=== PATIENT | female | born 1955 | race Caucasian/White ===

== ENCOUNTER 2016-08-25 17:15 | Inpatient (IN) | payer MEDICAID ==
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
[2016-08-25] MEDS ORDERED: HYDROmorphone 1 MG INJECTION IV PRN (17:37)
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
[2016-08-25] MEDS ORDERED: ENOXAPARIN 40 MG/0.4 ML PFS SQ ONE (18:00)
--- NOTE | 2016-08-25 18:25 | DIRPT ---
CLINICAL DATA: Status post fall. Preop hip replacement. EXAM: PORTABLE CHEST 1 VIEW COMPARISON: None. FINDINGS: The heart size and mediastinal contours are within normal limits. Both lungs are clear. The visualized skeletal structures are unremarkable. IMPRESSION: No active disease. Electronically Signed By: Radha Coronel On: 08/25/2016 18:22
[2016-08-25 18:43] LABS: LEUKOCYTES/URINE NEG (NEGATIVE); NITRITE/URINE NEG (NEGATIVE); RBC/URINE 20-30 (0-5); URINE OCCULT BLOOD 2+ (NEG/TRACE)
[2016-08-25] MEDS: HYDROmorphone 1 MG INJECTION IV PRN (18:48)
[2016-08-25 18:49] LABS: AUTOMATED BASOPHIL 0.6 % (0-2); AUTOMATED MONOCYTE 7.2 % (3-10); AUTOMATED NEUTROPHIL 72.2 % (45-76); MPV 8.5 fL (7.4-10.4)
[2016-08-25 18:54] LABS: BLOOD UREA NITROGEN 18 MG/DL (7-17); CALC CORRECTED 9.1 MG/DL (8.4-10.2); CALCIUM 8.6 MG/DL (8.4-10.2); CALCULATED OSMOLALITY 279 MOs/Kg (270-290); CHLORIDE 104 mEq/L (98-107); CPK TOTAL WITH POSSIBLE MB 49 IU/L (30-134); GLUCOSE 163 MG/DL (70-99); SODIUM LEVEL 142 mEq/L (137-146); TOTAL PROTEIN 6.7 G/DL (6.3-8.2)
[2016-08-25 18:58] LABS: PARTIAL THROMB. TIME 22.2 SEC (22-35)
[2016-08-25] MEDS ORDERED: SODIUM BICARBONATE 50 ML IV ONE (19:00)
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
[2016-08-25] MEDS ORDERED: CHLORHEXIDINE (HIBICLENS) 4 OZ BOTTLE TOP ONE (21:00)
[2016-08-25] MEDS: ACETAMINOPHEN 325 MG/TAB TABLET PO SCH (22:37)
[2016-08-26] MEDS ORDERED: BENZONATATE 100 MG PERLES PO PRN (01:22)
[2016-08-26] MEDS ORDERED: SIMETHICONE 80 MG TAB PO PRN (01:22)
[2016-08-26] MEDS ORDERED: SENNA CONCENTRATE TAB PO PRN (01:22)
[2016-08-26] MEDS ORDERED: TEMAZEPAM 15 MG CAP PO PRN (01:22)
[2016-08-26] MEDS ORDERED: ONDANSETRON HCL 4 MG/2 ML VIAL IV PRN ×2 (01:22→11:35)
[2016-08-26] MEDS ORDERED: BISACODYL 5 MG TAB PO PRN (01:22)
[2016-08-26] MEDS ORDERED: GUAIFEN 100 MG-DEXTROMETH 10 MG PER 5 ML PO PRN (01:22)
[2016-08-26] MEDS ORDERED: PROMETHAZINE 25 MG/ML VIAL IV PRN (01:22)
[2016-08-26] MEDS ORDERED: Docusate Sodium 100 MG CAP PO PRN (01:22)
[2016-08-26] MEDS ORDERED: ALBUTEROL 0.083% 3 ML NEB NEB PRN (01:25)
[2016-08-26] MEDS: HYDROmorphone 1 MG INJECTION IV PRN ×5 (01:34→20:34)
[2016-08-26] MEDS: NS 1,000 ML IV SCH ×2 (01:36→15:36)
--- NOTE | 2016-08-26 01:50 | DIRPT ---
CLINICAL DATA: 60-year-old female with right leg numbness EXAM: CT HEAD WITHOUT CONTRAST TECHNIQUE: Contiguous axial images were obtained from the base of the skull through the vertex without intravenous contrast. COMPARISON: None. FINDINGS: The ventricles and the sulci are appropriate in size for the patient's age. There is no intracranial hemorrhage. No midline shift or mass effect identified. The germain-white matter differentiation is preserved. The visualized paranasal sinuses and mastoid air cells are well aerated. The calvarium is intact. IMPRESSION: No acute intracranial pathology. If symptoms persist and there are no contraindications, MRI may provide better evaluation if clinically indicated Electronically Signed By: Maged Hughes M.D. On: 08/26/2016 01:47
[2016-08-26] MEDS ORDERED: MUPIROCIN 2% OINT 22 GM TUBE NAS SCH (02:00)
[2016-08-26] MEDS: Albuterol/Ipratropium Neb 3 ML NEB NEB SCH ×4 (02:13→22:21)
[2016-08-26] MEDS: ACETAMINOPHEN 325 MG/TAB TABLET PO SCH ×3 (05:10→22:45)
[2016-08-26] MEDS ORDERED: CEFAZOLIN 1 GM VIAL IV ONE (06:00)
--- NOTE | 2016-08-26 11:32 | HIM.ANES ---
Anesthesia Evaluation & Plan Diagnoses: displaced fx right femoral neck Consented Procedure: hemiarthroplasty Surgeon:: Jacky Rodriguez - Focused Review of Systems Now: No Cardiac History: Yes: Hx Hypertension No: Hx Cardiac Disorders EKG Rhythm: Sinus Rhythm HEENT: Yes: Cataracts, Hx Vision Problem (Wears glasses) No: Loose/Decaying Teeth Respiratory: Yes: Hx Chronic Obstructive Pulmonary Disease (COPD), Hx Snoring No: Hx Home O2 Gastrointestinal: Yes: Hx Chronic Constipation No: Hx Liver disease Genitourinary: No: Hx Renal Disease Neurological/Musculoskeletal: Yes: HX Cerebrovascular Accident (x 3, most recent stroke 2008. Once had visual changes, resolved.) No: Hx Neurological Disorders Psychological: Yes Hx Anxiety, No Hx Depression, No Hx Mental/Emotional Disorders Smoking Status: Heavy tobacco smoker (5 or more cigarettes/day or daily pipe/ cigar) (Times 45 years) Past Social History: Denies: Alcohol Use, Substance Use Disorder Hx Chest Xray (date): Yes (08/25/16) Surgical History: Yes: Appendectomy (1982), Other (Lumbar spine surgery x3 in early 1999s.; tubal ligation in early ) - Focused Physical Exam NPO since: midnight 08/25/16 Mallampati: Class I Thyromental Distance: Greater than 3 Neck: Full Range of Motion Dental: Edentulous Cardiovascular/Chest: Normal Respiratory: Lungs clear Any problems with anesthesia, including nausea and vomiting?: No Any relatives with a history of Malignant Hyperthermia?: No Does patient have a history of Malignant Hyperthermia?: No Beta Marbella given (if appropriate): N/A Does the patient have a history of Motion Sickness-: No Other: Problem List Problem Status Onset COPD (chronic obstructive pulmonary disease) Acute Closed right hip fracture Acute Displaced fracture of right femoral neck Acute Right leg numbness Acute Tobacco abuse Acute History of CVA (cerebrovascular accident) Chronic PT/PTT/INR/ PT 10.0 SEC (9.2-11.2) 08/25/16 18:10 INR 1.0 08/25/16 18:10 APTT 22.2 SEC (22-35) 08/25/16 18:10 Allergies Allergy/AdvReac Type Severity Reaction Status Date / Time morphine Allergy Nausea/Vomi Verified 08/25/16 17:27 ting Home Medications Medication Instructions Recorded Last Taken Type Aspirin/Caffeine [Bc Powder Packet 1 santo PO Q4H PRN 08/25/16 08/25/16 05:30 History (1000mg/65mg)] 1 santo Hydromorphone HCl [Dilaudid-5] 1 mg PO .ONCE 08/25/16 08/25/16 History Potassium Chloride [Klor-Con M20] 20 meq PO .ONCE 08/25/16 08/25/16 History Height and Weight Patient's height 5 ft 10 in Patient's weight 59.137 kg Weight (Calculated Kilograms) 59.137 BMI 18.9 Vital Signs Temperature 98.3 F 08/26/16 11:02 Pulse Rate 86 08/26/16 11:02 Respiratory Rate 18 08/26/16 11:02 Blood Pressure 168/74 08/26/16 11:02 Pulse Oxygen Saturation 94 08/26/16 11:02 METS - Level of Activity: Climbing stairs(1 flight),walking level ground, running short distance - Anesthetic Plan Anesthesia Type: General ASA Class: 3 -: I have examined this patient and reviewed the medical record. The patient has been assessed prior to anesthesia. Risks and benefits of anesthesia and anesthetic technique options have been discussed and all questions answered. The patient accepts the risk and desires me to proceed with the planned anesthetic.
[2016-08-26] MEDS ORDERED: MEPERIDINE 25 MG/ML TUBEX IV PRN (11:35)
[2016-08-26] MEDS ORDERED: FENTANYL 100 MCG/2 ML VIAL IV PRN ×2 (11:35)
[2016-08-26] MEDS ORDERED: ONDANSETRON HCL 4 MG ODT TAB PO PRN (11:35)
[2016-08-26] MEDS ORDERED: LABETALOL 20 MG/4 ML SYRINGE IV PRN (11:35)
[2016-08-26] MEDS ORDERED: hydrALAZINE 20 MG/ML VIAL IV PRN (11:35)
[2016-08-26] MEDS ORDERED: ACETAMINOPHEN 325 MG/TAB TABLET PO ONE ×3 (11:37→12:00)
[2016-08-26] MEDS ORDERED: Aluminum;Magnesium;Simethicone 30 ML UDC PO PRN (11:54)
[2016-08-26] MEDS ORDERED: MAGNESIUM HYDROXIDE 30 ML BOTTLE PO PRN (11:54)
[2016-08-26] MEDS ORDERED: DIPHENHYDRAMINE 25 MG CAP PO PRN (11:54)
[2016-08-26] MEDS ORDERED: DIPHENHYDRAMINE 50 MG/ML VIAL IV PRN (11:54)
--- NOTE | 2016-08-26 11:57 | HIMOPRPT ---
PREOPERATIVE DIAGNOSIS: Right displaced subcapital femoral neck fracture.. POSTOPERATIVE DIAGNOSIS: Same. PROCEDURE: Right Press-Fit unipolar hip hemiarthroplasty. FINDINGS: Osteoporosis with significantly displaced subcapital femoral neck fracture. SPECIMENS REMOVED: Right femoral head sent for pathology.. ESTIMATED BLOOD LOSS: 250 cc's. ANESTHESIA: General anesthesia. COMPLICATIONS: None. SURGEON: Jacky Rodriguez M.D. WELDING LEAD BURNER: PABLO Winter . IMPLANTS: Include a metal unipolar Unitrax 45 mm head with a +8 mm offset C- Taper neck and a # 3 Press-Fit Accolade II stem SIGNIFICANT HISTORY, INDICATIONS, AND CONSENT: Clau is a 60-year-old household ambulator with a significant smoking history who ambulates without the assistance of the physis. The patient presented to the emergency department after a mechanical fall with a displaced femoral neck fracture and it was decided after discussing the risks, benefits, and alternatives with the patient that she would likely benefit from surgical intervention to include right hip hemiarthroplasty, secondary to improved ambulatory function and decreased pain, improved function, and decreased medical comorbidity exacerbation. OPERATION IN DETAIL: The patient was seen in the preop holding area. The right hip was signed. Consent was reviewed. Questions were answered. H and P updated. SCDs placed on the left lower extremity. The patient was taken to the operating room, placed in the supine position on the operating table. Anesthesia placed monitoring, performed general endotracheal intubation. The patient was then carefully positioned in the lateral decubitus position being careful to pad bony prominences. Once the patient was carefully positioned laterally, we sterilely prepped and draped the right lower extremity in the usual orthopedic fashion. A time-out was performed. The patient received prophylactic antibiotics and consensus reached amongst the participants in the OR suite. Next, our incision was delineated and a Ngozi approach was performed posteriorly in line with the femur distally and curving posteriorly gently at the greater trochanter. Sharp dissection was made through skin. Careful dissection down to tensor fascia was made. Fascia was incised distally in line with the femur and proximally blunt dissection to the gluteus. Next, a Charnley retractor was placed in standard fashion retracting with careful attention to the sciatic nerve, which was palpated. Bursa was removed using Bovie and picker machine operator, with short external rotators identified. A #2 FiberWire was tagged in the piriformis and capsule, two of these were placed in the short external rotators, and subperiosteal elevation of the short external rotators was performed. Capsulotomy was performed. Fracture was visualized, irrigated debris. Neck cut was performed approximately 1 cm proximal to the lesser trochanter, perpendicular to the femoral neck. We then removed our femoral head and sent this for pathology. After the femoral head was removed, this was measured and sized. We found that the most appropriate size was 45 mm, with good suction and seal. We then placed a femoral retractor and began preparation of the femoral canal with box office manager, then anterior reamer, and then gradual progressively broached up to a size 3 press-fit. Examination with a +8 mm offset neck and 45 mm head revealed good stability in appropriate length. Hip was stable at 90 degrees of flexion and 30 degrees of adduction, the patient was able to be internally rotated nearly 45 degrees before any subluxation occurred. No impingement posteriorly and again near anglican of leg lengths. The final components were placed after thorough irrigation. The capsulotomy repaired with #1 Vicryl. We then used #2 FiberWires to repair the short external rotators through bone tunnels on the posterior aspect of the greater trochanter. The incision was thoroughly irrigated, #1 barbed PDS was used to perform a watertight closure of the IT band , #2-0 Vicryl for subcutaneous closure, and ralf for skin. Sterile soft tissue dressing was placed. The patient was placed in abduction pillow sling, aroused by anesthesia, and taken to the postanesthesia care unit in stable condition. PLAN: The patient will be admitted to the Medicine Service when okay with anesthesia. The patient will be weightbearing as tolerated lower extremity with physical therapy. We recommended posterior hip precautions, abduction pillow while sleeping, limited opioids, Aspirin to begin tonight for 35 days postoperative course, 24 hours perioperative antibiotics, nutrition optimization.
[2016-08-26] MEDS ORDERED: Pharmacy Change IV Fluid Rate to KVO XX SCH (12:00)
[2016-08-26] MEDS ORDERED: NALOXONE 0.4 MG/ML AMPULE IV SCH (12:00)
--- NOTE | 2016-08-26 12:30 | GENMEDPROG ---
Chief Complaint: Hip fracture Subjective Note: Doing well, has a slight headache this morning. Also some slight right hip pain. Otherwise, denies any chest pain, shortness of breath or nausea. Awaiting surgery later this morning. Notes Reviewed: Yes Events from last night noted and discussed with Clinical Staff Current Medication List: Reviewed DVT Prophylaxis: Yes - Physical Examination Vital Signs and I&O: Last Vital Signs Temp 98.3 F 08/26/16 11:02 Pulse 86 08/26/16 11:02 Resp 18 08/26/16 11:02 BP 168/74 08/26/16 11:02 Pulse Ox 94 08/26/16 11:02 Oxygen Pulse Oxygen Saturation 94 O2 Device Room Air Oxygen Flow Rate Fraction of Inspired Oxygen ( FIO2) Intake & Output 08/24/16 08/25/16 08/26/16 08/27/16 06:59 06:59 06:59 06:59 Intake Total 430 100 Output Total 400 600 Balance 30 -500 Patient's weight 59.137 kg General: Alert, Oriented x3, No acute distress HEENT: EOMI (Sclera white) Neck: Normal Trachea alignment, Normal inspection Respiratory: Other (Symmetric nonlabored breathing bilaterally) Cardiovascular: Regular rate, No Gallops,Rubs/Murmurs GI: Normal bowel sounds, Soft, Non tender (non distended) Extremities/Musculoskeletal: Other (Normal Tone). negative: Edema, Cyanosis Lab/DI/Studies Reviewed: Laboratory Tests 08/25/16 08/25/16 08/25/16 18:10 18:10 18:10 WBC 9.6 Hgb 12.8 Hct 38.2 INR 1.0 Potassium 3.7 BUN 18 H Creatinine 0.60 Troponin I < 0.01 LDL Cholesterol, Calc 08/25/16 08/26/16 08/26/16 22:35 01:30 01:30 WBC Hgb Hct INR Potassium BUN Creatinine Troponin I < 0.01 < 0.01 LDL Cholesterol, Calc 118.0 H - Assessment (1) COPD (chronic obstructive pulmonary disease) Acute J44.9 - CHRONIC OBSTRUCTIVE PULMONARY DISEASE, UNSPECIFIED Comment/ Plan: No medications at home. Plan: Start nebs scheduled. PRN albuterol. Will need signficiant teaching. Follow up with primary care. Currently no evidence of acute exacerbation. (2) Closed right hip fracture Acute S72.001A - FRACTURE OF UNSP PART OF NECK OF RIGHT FEMUR, INIT Qualifiers: Encounter type: initial encounter Qualified Code(s): S72.001A - Fracture of unspecified part of neck of right femur, initial encounter for closed fracture (3) Right leg numbness Acute R20.0 - ANESTHESIA OF SKIN Comment/Plan: Right leg numbness. Has chronic numbness in both legs x years, but right before she fell 5 days ago, her right leg "felt like it wasn't there." Head CT unremarkable for any acute process. Neuro checks to continue, recommend daily aspirin and statin given history of CVAs, as well as elevated LDL. (4) Tobacco abuse Acute Z72.0 - TOBACCO USE Comment/Plan: Counseled to quit. (5) History of CVA (cerebrovascular accident) Chronic Z86.73 - PRSNL HX OF TIA (TIA), AND CEREB INFRC W/O RESID DEFICITS Comment/Plan: Patient reports 3 CVAs in past. She is not taking any medication. Plan: Start daily aspirin and statin. Instructed to follow up with primary care physician.
[2016-08-26] MEDS ORDERED: Vaccine Screening Complete SCH (13:00)
--- NOTE | 2016-08-26 14:02 | PCM.ORTHBL ---
- Subjective Hospital Day #: 2 Post Op Day: 0 (s/p R Hip George) Daily Assessment - Patient: Reports: Still having pain, Afebrile - Objective / Physical Exam Vital Signs: Temperature: 98.3 F (08/26/16 11:02) HR: 86 (08/26/16 11:02)RR: 18 (08/26/16 11: 02) BP: 168/74 (08/26/16 11:02)Pulse Ox: 94 (08/26/16 11:02) General: Alert, Cooperative, No acute distress Musculoskeletal / Extremities: 2 plus Dorsalis Pedis Pulse, Dressing Clean/Dry/ Intact, Tenderness Neurological: Positive Sensation First Dorsal Web Space, Sensation to light touch intact, Extensor Hallicus Longus Intact, Flexor Hallicus Longus Intact, Dorsiflexion Intact, Plantarflexion Intact Skin: Warm,Dry and Intact Laboratory/Diagnostics Reviewed: Laboratory Results - last 24 hr 08/25/16 08/25/16 08/25/16 18:10 18:10 18:10 WBC 9.6 RBC 4.37 Hgb 12.8 Hct 38.2 MCV 87 MCH 29.4 MCHC 33.6 RDW 14.3 Plt Count 250 MPV 8.5 Neut % (Auto) 72.2 Lymph % (Auto) 15.0 L [place] % (Auto) 7.2 Eos % (Auto) 5.0 Baso % (Auto) 0.6 Absolute Neuts (auto) 6.91 Absolute Lymphs (auto) 1.44 PT INR APTT Sodium 142 Potassium 3.7 Chloride 104 Carbon Dioxide 29 Anion Gap 13 BUN 18 H Creatinine 0.60 Estimated GFR (MDRD) > 60 Glucose 163 H Calculated Osmolality 279 Calcium 8.6 Corrected Calcium 9.1 Total Bilirubin 0.3 AST 18 ALT 33 Alkaline Phosphatase 107 Creatine Kinase 49 Troponin I < 0.01 Total Protein 6.7 Albumin 3.5 Triglycerides Cholesterol LDL Cholesterol, Calc VLDL Cholesterol, Calc HDL Cholesterol Cholesterol/HDL Ratio Urine Color Urine Clarity Urine pH Ur Specific [place] Urine Protein Urine Glucose (UA) Urine Ketones Urine Occult Blood Urine Nitrite Urine Bilirubin Urine Urobilinogen Ur Leukocyte Esterase Urine RBC Urine WBC Ur Epithelial Cells Urine Bacteria Hyaline Casts Urine Mucus Blood Type O NEGATIVE Antibody Screen Negative 08/25/16 08/25/16 08/25/16 18:10 18:12 22:35 WBC RBC Hgb Hct MCV MCH MCHC RDW Plt Count MPV Neut % (Auto) Lymph % (Auto) [place] % (Auto) Eos % (Auto) Baso % (Auto) Absolute Neuts (auto) Absolute Lymphs (auto) PT 10.0 INR 1.0 APTT 22.2 Sodium Potassium Chloride Carbon Dioxide Anion Gap BUN Creatinine Estimated GFR (MDRD) Glucose Calculated Osmolality Calcium Corrected Calcium Total Bilirubin AST ALT Alkaline Phosphatase Creatine Kinase Troponin I < 0.01 Total Protein Albumin Triglycerides Cholesterol LDL Cholesterol, Calc VLDL Cholesterol, Calc HDL Cholesterol Cholesterol/HDL Ratio Urine Color Yellow Urine Clarity Clear Urine pH 6.0 Ur Specific [place] >/=1.035 Urine Protein 1+ H Urine Glucose (UA) Neg Urine Ketones Neg Urine Occult Blood 2+ H Urine Nitrite Neg Urine Bilirubin Neg Urine Urobilinogen <2.0 Ur Leukocyte Esterase Neg Urine RBC 20-30 H Urine WBC 5-10 H Ur Epithelial Cells Occ Urine Bacteria Few Hyaline Casts 2-5 H Urine Mucus Mod H Blood Type Antibody Screen 08/26/16 08/26/16 01:30 01:30 WBC RBC Hgb Hct MCV MCH MCHC RDW Plt Count MPV Neut % (Auto) Lymph % (Auto) [place] % (Auto) Eos % (Auto) Baso % (Auto) Absolute Neuts (auto) Absolute Lymphs (auto) PT INR APTT Sodium Potassium Chloride Carbon Dioxide Anion Gap BUN Creatinine Estimated GFR (MDRD) Glucose Calculated Osmolality Calcium Corrected Calcium Total Bilirubin AST ALT Alkaline Phosphatase Creatine Kinase Troponin I < 0.01 Total Protein Albumin Triglycerides 105 Cholesterol 183 LDL Cholesterol, Calc 118.0 H VLDL Cholesterol, Calc 21.0 HDL Cholesterol 44.0 Cholesterol/HDL Ratio 4.2 Urine Color Urine Clarity Urine pH Ur Specific [place] Urine Protein Urine Glucose (UA) Urine Ketones Urine Occult Blood Urine Nitrite Urine Bilirubin Urine Urobilinogen Ur Leukocyte Esterase Urine RBC Urine WBC Ur Epithelial Cells Urine Bacteria Hyaline Casts Urine Mucus Blood Type Antibody Screen - Assessment and Plan (1) Displaced fracture of right femoral neck Acute S72.001A - FRACTURE OF UNSP PART OF NECK OF RIGHT FEMUR, INIT Present on Admission: Yes Comment/Plan: s/p R hip hemiarthroplasty - currently in pain. Meds ordered and will put ice on right hip. PT/OT this afternoon vs tomorrow am for WBAT RLE with AD and post hip precautions. DVT ppx with ASA 325mg po BID x 35 days.
[2016-08-26] MEDS ORDERED: HYDROmorphone 1 MG INJECTION ONE (14:08)
[2016-08-26] MEDS ORDERED: FENTANYL 100 MCG/2 ML VIAL ONE (14:18)
--- NOTE | 2016-08-26 15:03 | DIRPT ---
CLINICAL DATA: Postop EXAM: RIGHT HIP (WITH PELVIS) 1 VIEW PORTABLE COMPARISON: 08/25/16 FINDINGS: Single portable view of the right hip submitted. There is right hip prosthesis with anatomic alignment. Postsurgical changes are noted with lateral skin ralf. Small amount of periarticular soft tissue air. IMPRESSION: Right hip prosthesis with anatomic alignment. Postsurgical changes are noted. Electronically Signed By: Jj Gracia M.D. On: 08/26/2016 15:00
[2016-08-26] MEDS: Cefazolin 2gm/50 ml D5W 2 GM/50 ML RTU IV SCH ×2 (15:38→20:33)
[2016-08-26] MEDS: CALCIUM CARBONATE + VITAMIN D 500 MG TAB PO SCH ×2 (15:40→16:59)
[2016-08-26] MEDS: VITAMINS, MULTIPLE CAP PO SCH (15:40)
[2016-08-26] MEDS: OXYCODONE HCL 5 MG TABLET PO PRN (16:59)
[2016-08-26] MEDS: PANTOPRAZOLE 40 MG TAB PO SCH (16:59)
[2016-08-26] MEDS: Aspirin (Orange Enteric Coated) 325 mg tab PO SCH (16:59)
[2016-08-26] MEDS: Celecoxib 200 MG CAP PO SCH (17:00)
[2016-08-26] MEDS: SODIUM CHLORIDE 0.9% 3 ML FLUSH FLUSH SCH (17:03)
--- NOTE | 2016-08-26 17:56 | SC.ANESPOS ---
Post-Anesthesia Note LOC: Fully Awake Post-Anesthesia Assessment: Awake, Returned to Baseline, Hemodynamically Stable , Pain Control Adequate Phase I & II Recovery Complete: Yes Apparent Anesthesia Complication: No : N - Vital Signs Blood Pressure: 134/68 Pulse: 91 Resp Rate: 18 O2 Sat: 96 Temp: 98 F
[2016-08-26] MEDS: DOCUSATE-SENNA CONCENTRATE TAB PO SCH (20:33)
[2016-08-27] MEDS: NS 1,000 ML IV SCH ×2 (02:04→10:45)
[2016-08-27] MEDS: OXYCODONE HCL 5 MG TABLET PO PRN ×4 (04:40→21:12)
[2016-08-27] MEDS: Cefazolin 2gm/50 ml D5W 2 GM/50 ML RTU IV SCH (04:48)
[2016-08-27] MEDS: ACETAMINOPHEN 325 MG/TAB TABLET PO SCH ×3 (05:52→21:07)
[2016-08-27] MEDS: PANTOPRAZOLE 40 MG TAB PO SCH ×2 (05:52→17:23)
[2016-08-27] MEDS: SODIUM CHLORIDE 0.9% 3 ML FLUSH FLUSH SCH ×2 (06:06→17:26)
[2016-08-27 07:31] LABS: BLOOD UREA NITROGEN 14 MG/DL (7-17); CALCIUM 8.4 MG/DL (8.4-10.2); CALCULATED OSMOLALITY 272 MOs/Kg (270-290); CHLORIDE 102 mEq/L (98-107); GLUCOSE 147 MG/DL (70-99); SODIUM LEVEL 139 mEq/L (137-146)
--- NOTE | 2016-08-27 07:43 | PCM.ORTHBL ---
- Subjective Hospital Day #: 3 Post Op Day: 1 (s/p R Hip George) Daily Assessment - Patient: Reports: Awake Alert Oriented x4, Feels better, Tolerating liquids well, Tolerating Regular Diet, Voiding without difficulty, Afebrile - Objective / Physical Exam Vital Signs: Temperature: 98.7 F (08/27/16 04:37) HR: 93 (08/27/16 04:37)RR: 18 (08/27/16 04: 37) BP: 120/57 (08/27/16 04:37)Pulse Ox: 92 (08/27/16 04:37) General: Alert, Oriented x3, Cooperative, No acute distress Musculoskeletal / Extremities: 2 plus Dorsalis Pedis Pulse, Dressing Clean/Dry/ Intact, Tenderness Neurological: Positive Sensation First Dorsal Web Space, Sensation to light touch intact, Extensor Hallicus Longus Intact, Flexor Hallicus Longus Intact, Dorsiflexion Intact, Plantarflexion Intact Skin: Warm,Dry and Intact Laboratory/Diagnostics Reviewed: Laboratory Results - last 24 hr 08/26/16 08/26/16 08/27/16 14:05 16:32 06:35 WBC RBC Hgb 10.8 L D Hct 33.0 L MCV MCH MCHC RDW Plt Count MPV Sodium 139 Potassium 4.2 Chloride 102 Carbon Dioxide 31 Anion Gap 10 BUN 14 Creatinine 0.50 L Estimated GFR (MDRD) > 60 Glucose 147 H POC Capillary Glucose 143 H Calculated Osmolality 272 Calcium 8.4 08/27/16 06:35 WBC 8.5 RBC 3.40 L Hgb 9.8 L Hct 29.3 L MCV 86 MCH 29.0 MCHC 33.6 RDW 13.8 Plt Count 226 MPV 8.0 Sodium Potassium Chloride Carbon Dioxide Anion Gap BUN Creatinine Estimated GFR (MDRD) Glucose POC Capillary Glucose Calculated Osmolality Calcium - Assessment and Plan (1) Displaced fracture of right femoral neck Acute S72.001A - FRACTURE OF UNSP PART OF NECK OF RIGHT FEMUR, INIT Present on Admission: Yes Comment/Plan: POD #1 s/p R hip hemiarthroplasty doing well. PT/OT today for WBAT RLE with AD and posterior hip precautions. DVT ppx as ordered. Dispo planning home vs rehab.
[2016-08-27] MEDS: Celecoxib 200 MG CAP PO SCH ×2 (07:50→17:22)
[2016-08-27] MEDS: HYDROmorphone 1 MG INJECTION IV PRN (07:50)
[2016-08-27] MEDS: Aspirin (Orange Enteric Coated) 325 mg tab PO SCH ×2 (07:50→17:22)
--- NOTE | 2016-08-27 08:06 | GENMEDPROG ---
Chief Complaint: R HIP FRACTURE-S/P ORIF, DJD, OSTEOPENIA, HIP PAIN, Subjective Note: Patient denies significant pain, states she walked 25 feet today with PT Notes Reviewed: Yes Events from last night noted and discussed with Clinical Staff Current Medication List: Reviewed Currently: Reports: RANGEL, SOB, Tobacco Use/Hx, Francy PT/OT, Ambulating. Denies: Alcohol Hx DVT Prophylaxis: Yes - Physical Examination Vital Signs and I&O: Last Vital Signs Temp 98.7 F 08/27/16 04:37 Pulse 93 08/27/16 04:37 Resp 18 08/27/16 04:37 BP 120/57 L 08/27/16 04:37 Pulse Ox 92 08/27/16 04:37 Oxygen Pulse Oxygen Saturation 92 O2 Device Room Air Oxygen Flow Rate 2 Fraction of Inspired Oxygen ( FIO2) Intake & Output 08/24/16 08/25/16 08/26/16 08/27/16 23:59 23:59 23:59 23:59 Intake Total 0 922 671 Output Total 1850 200 Balance 0 -928 471 Patient's weight 59.874 kg 59.137 kg 59.988 kg General: Alert, Oriented x3, Cooperative, No acute distress HEENT: Normal, PERRLA, EOMI, Anicteric Sclera, Mucous membr. moist/pink, Normocephalic Neck: Full range of motion, Normal Trachea alignment, Normal inspection, No Masses palpable Lymphatics: Normal Respiratory: Normal - CTA, Diminished Cardiovascular: Regular rate and rhythm, Normal S1, Normal S2 GI: Normal bowel sounds, Soft, Non tender, No masses Extremities/Musculoskeletal: Normal pulses, DJD. negative: Edema Skin: Warm,Dry and Intact, No breakdown Neurological: Normal speech, Strength at 5/5 X4 ext, Normal tone, Cranial nerves 3-12 NL Psych/Mental Status: Appropriate, Normal Affect, Cooperative Lab/DI/Studies Reviewed: Laboratory Tests 08/27/16 08/27/16 06:35 06:35 WBC 8.5 Hgb 9.8 L Hct 29.3 L Plt Count 226 Sodium 139 Potassium 4.2 Chloride 102 Carbon Dioxide 31 Anion Gap 10 BUN 14 Creatinine 0.50 L Estimated GFR (MDRD) > 60 Glucose 147 H Calculated Osmolality 272 Calcium 8.4 - Assessment (1) Displaced fracture of right femoral neck Acute S72.001A - FRACTURE OF UNSP PART OF NECK OF RIGHT FEMUR, INIT Comment/ Plan: Right hip fracture, s/p CRIF now. Occurred after a fall that occurred at home. Patient is at moderate risk due to smoking, COPD, history of 3 strokes. She reports she felt like her right leg was numb right before her fall; will check head CT given her history. Discussed case with Dr. Rodriguez. (2) Cerebrovascular disease Acute I67.9 - CEREBROVASCULAR DISEASE, UNSPECIFIED Comment/Plan: History of prior strokes in past. (3) Osteopenia of thigh Chronic M85.859 - OT DISRD OF BONE DENSITY AND STRUCTURE, UNSPECIFIED THIGH Comment/Plan: Will need Vit D and calcium supplementation (4) COPD (chronic obstructive pulmonary disease) Acute J44.9 - CHRONIC OBSTRUCTIVE PULMONARY DISEASE, UNSPECIFIED Qualifiers: COPD type: unspecified COPD Qualified Code(s): J44.9 - Chronic obstructive pulmonary disease, unspecified Comment/Plan: No medications at home. Start nebs scheduled. PRN albuterol. Will need signficiant teaching. Follow up with primary care. Currently no evidence of acute exacerbation. (5) Tobacco abuse Acute Z72.0 - TOBACCO USE Comment/Plan: Counseled to quit.
[2016-08-27] MEDS: Albuterol/Ipratropium Neb 3 ML NEB NEB SCH ×3 (09:18→21:35)
[2016-08-27] MEDS: VITAMINS, MULTIPLE CAP PO SCH (10:45)
[2016-08-27] MEDS: CALCIUM CARBONATE + VITAMIN D 500 MG TAB PO SCH ×2 (10:45→17:22)
[2016-08-27] MEDS: DOCUSATE-SENNA CONCENTRATE TAB PO SCH (21:07)
[2016-08-28] MEDS: NS 1,000 ML IV SCH (01:27)
[2016-08-28 05:03] VITALS: TEMP 98
[2016-08-28 05:05] VITALS: BMI 23.8
[2016-08-28] MEDS: SODIUM CHLORIDE 0.9% 3 ML FLUSH FLUSH SCH (05:25)
[2016-08-28] MEDS: PANTOPRAZOLE 40 MG TAB PO SCH (05:25)
[2016-08-28] MEDS: ACETAMINOPHEN 325 MG/TAB TABLET PO SCH (05:25)
--- NOTE | 2016-08-28 07:13 | PCM.DCS92 ---
- Final/Secondary Discharge Diagnosis (1) Displaced fracture of right femoral neck Acute S72.001A - FRACTURE OF UNSP PART OF NECK OF RIGHT FEMUR, INIT Present on Admission: Yes Discharge Disposition: Discharge w/ Home Health Discharge Condition: Improved Cognitive Discharge Status: Unimpaired Fuctional Discharge Status: Recent lower extremety joint replacement Physician Follow up/Referrals: Jacky Rodriguez MD [Staff Physician] - 09/09/16 9:00 am New Prescriptions: Albuterol/Ipratropium Neb [Duoneb] 3 ml NEB RTQ8 #100 nebu Aspirin (OrangeEnteric Coated) [Ecotrin] 325 mg PO BIDWM #60 tablet Calcium Carbonate + Vitamin D [Oscal with Vitamin D] 500 mg PO BIDLS #100 tablet Celecoxib (anti-inflammatory) [Celebrex] 200 mg PO BIDWM #60 capsule Cholecalciferol (Vitamin D3) [Vitamin D3 (cholecalciferol)] 5,000 unit PO DAILY #100 capsule Nicotine [Nicoderm] 14 mg TOP DAILY #30 pat Oxycodone Immediate Release [Oxycodone Immediate Release (OxyIR)] 5 mg PO Q4H PRN #60 tablet PRN Reason: Moderate To Severe Pain Vitamins, Multiple [Unicap] 1 cap PO DAILY@1200 #100 capsule Diet at Discharge: Regular Activity: No Heavy Lifting, No Driving Call Office For: Worsening Symptoms, Wound is Draining Pus, Fever over 101 F, Pain Uncontrolled By Meds Discontinue use of:: Alcohol, All Illegal Substances, All Types of Tobacco - DC Summary Notes Hospital Course Note:: Discharge summary on patient named MODESTA VIVEROS admitted to [facility] on 08/25/16 by Garret Delatorre MD. Date of discharge is []. Medication Instructions: Rx on Chart Continue Ice Packs/Ice Machine to Operative Area: Yes Activity as Tolerated: Yes Weight Bearing: Full Posterior Hip Precautions: YES Current Dressing: Aquacel Dressing Care: Keep Wound Clean & Dry, No Tub Baths, Do Not Change Dressing - Consults/Home Health Outpatient Consults: Home Health - Physical Exam Vital Signs: Initial Vitals Pulse Rate 90 08/25/16 17:27 Respiratory Rate 20 08/25/16 17:27 Blood Pressure 172/72 08/25/16 17:27 Pulse Oxygen Saturation 100 08/25/16 17:27
[2016-08-28 07:30] LABS: MPV 8.4 fL (7.4-10.4)
[2016-08-28] MEDS: Albuterol/Ipratropium Neb 3 ML NEB NEB SCH (07:46)
[2016-08-28] MEDS: OXYCODONE HCL 5 MG TABLET PO PRN (08:12)
[2016-08-28] MEDS: Celecoxib 200 MG CAP PO SCH (08:13)
[2016-08-28] MEDS: Aspirin (Orange Enteric Coated) 325 mg tab PO SCH (08:13)
--- NOTE | 2016-08-28 08:48 | PCM.DCS92 ---
- Final/Secondary Discharge Diagnosis (1) Displaced fracture of right femoral neck Acute S72.001A - FRACTURE OF UNSP PART OF NECK OF RIGHT FEMUR, INIT Present on Admission: Yes Comment: Right hip fracture, s/p CRIF now. Occurred after a fall that occurred at home. Patient is at moderate risk due to smoking, COPD, history of 3 strokes. She reports she felt like her right leg was numb right before her fall; CT of head showed no evidence of new intracranial pathology. Discussed case with Dr. Rodriguez. Stable for discharge to home for continued rehabilitation as outpatient. (2) Cerebrovascular disease Acute I67.9 - CEREBROVASCULAR DISEASE, UNSPECIFIED Present on Admission: Yes Comment: History of prior strokes in past. (3) Osteopenia of thigh Chronic M85.859 - OTH DISRD OF BONE DENSITY AND STRUCTURE, UNSPECIFIED THIGH Present on Admission: Yes Comment: Will need Vit D and calcium supplementation (4) COPD (chronic obstructive pulmonary disease) Acute J44.9 - CHRONIC OBSTRUCTIVE PULMONARY DISEASE, UNSPECIFIED Present on Admission: Yes unspecified COPD J44.9 - Chronic obstructive pulmonary disease, unspecified Comment: No medications at home. Start nebs scheduled, plus PRN albuterol. Will need signficiant teaching. Follow up with primary care. Currently no evidence of acute exacerbation. (5) Tobacco abuse Chronic Z72.0 - TOBACCO USE Present on Admission: Yes Comment: Counseled to quit. Discharge Disposition: Discharge w/ Home Health Discharge Condition: Improved Cognitive Discharge Status: Unimpaired Fuctional Discharge Status: Walker Assistance, Fall Risk, Inability to drive due to severe medical illness, Recent lower extremety joint replacement, Ambulatory Dysfunction Physician Follow up/Referrals: Jacky Rodriguez MD [Staff Physician] - Two Weeks New Prescriptions: Albuterol/Ipratropium Neb [Duoneb] 3 ml NEB RTQ8 #100 nebu Aspirin (OrangeEnteric Coated) [Ecotrin] 325 mg PO BIDWM #60 tablet Calcium Carbonate + Vitamin D [Oscal with Vitamin D] 500 mg PO BIDLS #100 tablet Celecoxib (anti-inflammatory) [Celebrex] 200 mg PO BIDWM #60 capsule Cholecalciferol (Vitamin D3) [Vitamin D3 (cholecalciferol)] 5,000 unit PO DAILY #100 capsule Nicotine [Nicoderm] 14 mg TOP DAILY #30 pat Oxycodone Immediate Release [Oxycodone Immediate Release (OxyIR)] 5 mg PO Q4H PRN #60 tablet PRN Reason: Moderate To Severe Pain Vitamins, Multiple [Unicap] 1 cap PO DAILY@1200 #100 capsule Discharge Home Medication List Acetaminophen Tablet [TYLENOL Tablet] 650 mg PO Q6H PRN #120 tablet 08/28/16 [ Rx Last Taken Unknown] Albuterol/Ipratropium Neb [Duoneb] 3 ml NEB RTQ8 #100 nebu 08/28/16 [Rx Last Taken Unknown] Aspirin (OrangeEnteric Coated) [Ecotrin] 325 mg PO BIDWM #60 tablet 08/28/16 [ Rx Last Taken Unknown] Calcium Carbonate + Vitamin D [Oscal with Vitamin D] 500 mg PO BIDLS #100 tablet 08/28/16 [Rx Last Taken Unknown] Celecoxib (anti-inflammatory) [Celebrex] 200 mg PO BIDWM #60 capsule 08/28/16 [ Rx Last Taken Unknown] Cholecalciferol (Vitamin D3) [Vitamin D3 (cholecalciferol)] 5,000 unit PO DAILY #100 capsule 08/28/16 [Rx Last Taken Unknown] Docusate Sodium [Colace] 100 mg PO BID PRN #60 capsule 08/28/16 [Rx Last Taken Unknown] Nicotine [Nicoderm] 14 mg TOP DAILY #30 pat 08/28/16 [Rx Last Taken Unknown] Oxycodone Immediate Release [Oxycodone Immediate Release (OxyIR)] 5 mg PO Q4H PRN #60 tablet 08/28/16 [Rx Last Taken Unknown] Vitamins, Multiple [Unicap] 1 cap PO DAILY@1200 #100 capsule 08/28/16 [Rx Last Taken Unknown] O2 Device: Room Air Diet at Discharge: Regular Activity: No Heavy Lifting, No Driving Call Office For: Worsening Symptoms, Wound is Draining Pus, Fever over 101 F, Pain Uncontrolled By Meds Discontinue use of:: Alcohol, All Illegal Substances, All Types of Tobacco - DC Summary Notes Hospital Course Note:: Discharge summary on patient named MODESTA VIVEROS admitted to [facility] on 08/25/16 by Garret Delatorre MD. Date of discharge is []. The patient is a 60 yo woman with COPD, history of 3 strokes, and history of 3 back surgeries who stepped out of a car 5 days ago and her right leg just gave out. It was very painful and she couldn't stand without severe pain. She reports that shortly before falling, she had significant numbness in her right leg. She has bilateral numbness in legs at baseline since her back surgeries, but this was different. She felt like her entire right leg was just not there; the numbness sensation has persisted in her right lower leg. She has had severe pain in her right hip and is having trouble walking on it. She went to the [facility] emergency department, where hip x-rays revealed a right hip fracture. She was transferred to [facility] for treatment. Onset: 5 days ago. Duration: constant. Location: right hip. Radiation: right thigh. Character: 10/ sharp. Alleviated by: Nothing. Exacerbated by: weight bearing. Associated Symptoms: No fever or chills. Has anxiety and has felt anxious. No weakness except the chronic mild weakness she has from the back surgeries. Did have some numbness that is chronic since her back surgery. Right leg felt like she didn't have a leg when she fell; more numbness than usual since the fall involving lower half of right leg. No slurred speech, facial droop, or altered level of consciousness. Has headaches intermittently. No dizziness. Shortness of breath that is chronic. Wheezing. No cough. She was admitted to the hospital and orthopedics was consulted for repair of the fracture. Her CT of the head did not show any evidence of a new stroke. She underwent a hip replacement with hemiarthroplasty of the right hip on August 26, 2016. Post-operatively she has done very well, is ambulating with minimal pain. she has been started on treatment for her COPD to optimize her pulmonary function, and encouraged to quit smoking for better healing. She has decided to complete her rehabilitation at home with the assistance of home health nursing and physical therapy. She will follow-up with Dr. Rodriguez in 2 weeks. Code: 50486 (>30min.) - Physical Exam Vital Signs: Last Vital Signs Temp 98.0 F 08/28/16 05:03 Pulse 86 08/28/16 05:03 Resp 18 08/28/16 05:03 BP 107/51 L 08/28/16 05:03 Pulse Ox 92 08/28/16 05:03 Oxygen Pulse Oxygen Saturation 92 O2 Device Room Air Oxygen Flow Rate 2 Fraction of Inspired Oxygen ( FIO2) Constitutional: No apparent distress, Alert Oriented to: Time, Person, Place - HEENT Head: Normal (normocephalic, atraumatic.), Other (No cervical lymphadenopathy. No supraclavicular lymphadenopathy. Neck: No palpable mass, supple , trachea midline.) Eye: Normal (pupils equal, reactive to light, and round; EOMI, Sclera white) Oropharynx: Normal Tympanic Membrane: Normal ENT EAC: Normal TMJ: Normal Nose: No Symptoms Reported - Respiratory/Cardiovascular Respiratory: Normal - CTA, Diminished Cardiovascular: Normal - GI Auscultation: Normal Palpation: Normal Tenderness: Non tender Rectal Exam: Deferred - Musculoskeletal Back: Normal, Other Extremities: Other (Right lower extremity: Incision is bandaged. Skin is intact. Brisk cap refill in all digits. Weakly palpable dorsalis pedis pulse. Sensory intact to light touch over the deep and superficial peroneal, tibial, sural, and saphenous nerves. Mild tenderness palpation about the proximal femur. No tenderness grossly to the right knee, without deformity or swelling present.) - Integumentary Lymphatics: Normal - Neurologic Memory Impaired: Normal Motor Function: Normal Cranial Nerve: Normal Cerebellar: Normal Mood Description: Normal Thought: Coherent Perception: Normal
[2016-08-28 09:59] VITALS: BP 133/60; PULSE 97
[2016-08-28] MEDS: CALCIUM CARBONATE + VITAMIN D 500 MG TAB PO SCH (11:29)
[2016-08-28] MEDS: VITAMINS, MULTIPLE CAP PO SCH (11:29)
== END 2016-08-28 13:13 | disposition home health service (06) | DRG 470 ==
LOC: ED 17:15 → MPS3 20:08
PROVIDERS: ADMIT Internal Medicine; ATTEND Family Medicine
PROC: 0SRR01A Replacement of Right Hip Joint, Femoral Surface with Metal Synthetic Substitute, Uncemented, Open Approach (ICD-10-PCS; principal; 2016-08-26 11:45)
DX: S72.001A Fracture of unspecified part of neck of right femur, initial encounter for closed fracture (principal); J44.9 Chronic obstructive pulmonary disease, unspecified; Z86.73 Personal history of transient ischemic attack (TIA), and cerebral infarction without residual deficits; M85.859 Other specified disorders of bone density and structure, unspecified thigh; F17.210 Nicotine dependence, cigarettes, uncomplicated; I67.9 Cerebrovascular disease, unspecified; F41.9 Anxiety disorder, unspecified; Z88.5 Allergy status to narcotic agent; Z79.82 Long term (current) use of aspirin; Z79.899 Other long term (current) drug therapy; R20.0 Anesthesia of skin; W01.0XXA Fall on same level from slipping, tripping and stumbling without subsequent striking against object, initial encounter; Y93.89 Activity, other specified
CPT/HCPCS: 36415; 70450; 71010; 80048; 80053; 80061; 81001; 82306; 82550; 82962; 84484; 85014; 85018; 85025; 85027; 85610; 85730; 86850; 86900; 86901; 87641; 93005; 94640; 96361; 96365; 96366; 96372; 96375; 97162; 97165; 98960; 99284; 99406; G0237; J0690; J1170; J1650; J3010; J3490; J7620